=== PATIENT | male | born 1945 | race Caucasian/White ===

== ENCOUNTER 2017-10-10 10:50 | Day surgery (SDC) | payer MEDICARE, BC, OTHER ==
[~2017-10-10 10:50] MED LIST: ACETAMINOPHEN 325 MG TAB PO; MIDAZOLAM INJ 2 MG/2 ML VIAL (J2250) As Ordered; PHENYLEPHRINE HCL 10 % OPHTH. SOL 5ML XX; fentaNYL 100 MCG/2 ML INJECTION (J3010) As Ordered
[2017-10-10] MEDS ORDERED: LR 1,000 ML IV (11:15)
[2017-10-10] MEDS: OFLOXACIN 0.3 % (OCUFLOX) OPTH SOL 5ML XX (11:20)
[2017-10-10] MEDS: CYCLOPENTOLATE 2% OPHTH SOLN 2ML BTL XX (11:20)
[2017-10-10] MEDS: PHENYLEPHRINE 2.5% OPHTH SOL 2ML XX (11:20)
[2017-10-10] MEDS: LIDOCAINE 3.5 % 1ML OPHTH TOPICAL GEL OU (11:24)
[2017-10-10] MEDS: TROPICAMIDE 1% OPHTH SOLN 2ML XX (11:30)
[2017-10-10] MEDS: POVIDONE-IODINE 5% OPHTH PREP SOL 30ML As Ordered (13:03)
[2017-10-10] MEDS: MOXIFLOXACIN IN BSS 0.25MG/0.25ML INTRACAMERAL INJ (OR EYE ONLY)(J2280) As Ordered (13:03)
[2017-10-10] MEDS: LIDOCAINE 1% SDV 5 ML VIAL As Ordered (13:03)
[2017-10-10] MEDS: BSS with VANC/TOB/EPI for EYE CASES IR (13:03)
[2017-10-10] MEDS: HEALON DUET (HEALON 10MG/ML 0.55ML & HEALON ENDOCOAT 30MG/ML 0.85ML) As Ordered (13:03)
[2017-10-10] MEDS: TRIAMCINOLONE PRES FR 40 MG/ML 1ML(TRIESENCE)(OR EYE ONLY)(J3300 PER 1MG) As Ordered (13:03)
[2017-10-10] MEDS: AcetaZOLAMIDE 500 MG ER CAP PO (13:45)
[2017-10-10] MEDS ORDERED: TRIMETHOBENZAMIDE 300 MG CAP PO (13:45)
== END 2017-10-10 13:47 | disposition home or self-care (01) ==
LOC: M SDC 10:50
DX: H25.11 Age-related nuclear cataract, right eye (principal); I10 Essential (primary) hypertension; E78.2 Mixed hyperlipidemia; K21.9 Gastro-esophageal reflux disease without esophagitis; M12.9 Arthropathy, unspecified; N40.0 Benign prostatic hyperplasia without lower urinary tract symptoms; Z79.899 Other long term (current) drug therapy; Z79.82 Long term (current) use of aspirin; Z87.891 Personal history of nicotine dependence
CPT/HCPCS: 66984

== ENCOUNTER 2017-11-21 07:22 | Day surgery (SDC) | payer MEDICARE, BC, OTHER ==
[~2017-11-21 07:22] MED LIST changes: -MIDAZOLAM INJ 2 MG/2 ML VIAL (J2250) As Ordered; +PHENYLEPHRINE HCL 10 % OPHTH. SOL 5ML OS; -PHENYLEPHRINE HCL 10 % OPHTH. SOL 5ML XX; -fentaNYL 100 MCG/2 ML INJECTION (J3010) As Ordered
[2017-11-21] MEDS: PHENYLEPHRINE 2.5% OPHTH SOL 2ML OS (10:11)
[2017-11-21] MEDS: CYCLOPENTOLATE 2% OPHTH SOLN 2ML BTL OS (10:11)
[2017-11-21] MEDS: OFLOXACIN 0.3 % (OCUFLOX) OPTH SOL 5ML OS (10:11)
[2017-11-21] MEDS: TROPICAMIDE 1% OPHTH SOLN 2ML OS (10:11)
[2017-11-21] MEDS: LIDOCAINE 3.5 % 1ML OPHTH TOPICAL GEL OU (10:11)
[2017-11-21] MEDS ORDERED: fentaNYL 100 MCG/2 ML INJECTION (J3010) As Ordered (11:31)
[2017-11-21] MEDS ORDERED: MIDAZOLAM INJ 2 MG/2 ML VIAL (J2250) As Ordered (11:31)
[2017-11-21] MEDS: POVIDONE-IODINE 5% OPHTH PREP SOL 30ML As Ordered (11:36)
[2017-11-21] MEDS: MOXIFLOXACIN IN BSS 0.25MG/0.25ML INTRACAMERAL INJ (OR EYE ONLY)(J2280) As Ordered (11:38)
[2017-11-21] MEDS: HEALON DUET (HEALON 10MG/ML 0.55ML & HEALON ENDOCOAT 30MG/ML 0.85ML) As Ordered ×2 (11:38→11:42)
[2017-11-21] MEDS: LIDOCAINE 1% SDV 5 ML VIAL As Ordered (11:38)
[2017-11-21] MEDS: TRIAMCINOLONE PRES FR 40 MG/ML 1ML(TRIESENCE)(OR EYE ONLY)(J3300 PER 1MG) As Ordered (11:38)
[2017-11-21] MEDS: BSS with VANC/TOB/EPI for EYE CASES IR (11:38)
[2017-11-21] MEDS: LIDOCAINE 2% W/EPIN INJ 20ML **PRES FREE XX (11:47)
[2017-11-21] MEDS: AcetaZOLAMIDE 500 MG ER CAP PO (12:23)
[2017-11-21] MEDS ORDERED: TRIMETHOBENZAMIDE 300 MG CAP PO (12:30)
== END 2017-11-21 12:30 | disposition home or self-care (01) ==
LOC: M SDC 07:22
DX: H26.9 Unspecified cataract (principal); H57.03 Miosis; E11.9 Type 2 diabetes mellitus without complications; E78.5 Hyperlipidemia, unspecified; R97.20 Elevated prostate specific antigen [PSA]; I10 Essential (primary) hypertension; I65.23 Occlusion and stenosis of bilateral carotid arteries; N40.1 Benign prostatic hyperplasia with lower urinary tract symptoms; R35.1 Nocturia; K21.9 Gastro-esophageal reflux disease without esophagitis; M17.0 Bilateral primary osteoarthritis of knee; Z79.899 Other long term (current) drug therapy; Z79.82 Long term (current) use of aspirin; Z87.891 Personal history of nicotine dependence
CPT/HCPCS: 66982